=== PATIENT | male | born 1950 | race Caucasian/White ===

== ENCOUNTER → 2017-12-14 | Outpatient (CLI) | payer MEDICARE, OTHER ==
[~2017-12-14] MED LIST: ALENDRONATE SOD70 MG; ALLER-FEX180 MG; CALCIUM MAGNESIUM; COQ-10100 MG; DOXAZOSIN MESYLA8 MG; FIBER THERAPY500 MG; FLEXERIL; FLOMAX0.4 MG PO; LIPITOR10 MG; MELATONIN3 MG; NORCO 5-325 TA1 EACH PO; OMEPRAZOLE40 MG; OSTEO BI-FLEX1 EAC2; PROSTA-STRONG; TORADOL 10 MG T10 MG PO
== END ==
LOC: M.RAD 14:27
DX: M81.0 Age-related osteoporosis without current pathological fracture (principal); E78.5 Hyperlipidemia, unspecified; K21.9 Gastro-esophageal reflux disease without esophagitis

== ENCOUNTER → 2019-12-30 | Outpatient (CLI) | payer MEDICARE, OTHER ==
[2019-12-30 10:53] LABS: CREATININE 1.1 mg/dL (0.6-1.3)
== END ==
LOC: M.LAB 10:00 → M.CT 10:30
PROVIDERS: ATTEND Family Medicine
DX: K57.30 Diverticulosis of large intestine without perforation or abscess without bleeding (principal); N40.1 Benign prostatic hyperplasia with lower urinary tract symptoms; K42.9 Umbilical hernia without obstruction or gangrene; K44.9 Diaphragmatic hernia without obstruction or gangrene

== ENCOUNTER 2020-05-01 15:49 | Inpatient (IN) | payer MEDICARE, OTHER ==
[~2020-05-01] VITALS: Ht 162.6 cm; Wt 90.8 kg
[~2020-05-01 15:49] MED LIST changes: -DOXAZOSIN MESYLA8 MG; +DOXAZOSIN MESYLA8 MG PO; -MELATONIN3 MG; +MELATONIN3 MG PO
[2020-05-01 15:55] VITALS: BP 142/69
[2020-05-01] MEDS ORDERED: METOPROLOL TART25 MG PO (15:59)
[2020-05-01] MEDS ORDERED: DICLOFENAC SODI75 MG PO (16:00)
[2020-05-01] MEDS ORDERED: NAMENDA 5 MG TAB5 M1 PO (16:01)
[2020-05-01] MEDS ORDERED: PROSCAR 5MG TABL5 M1 PO (16:01)
[2020-05-01] MEDS ORDERED: TRAZODONE HCL100 MG PO (16:02)
[2020-05-01] MEDS ORDERED: SINGULAIR 10 MG10 MG PO (16:02)
[2020-05-01 16:22] LABS: ABSOLUTE EOSINOPHILS 0.1 thou/uL (0.0-0.7); ABSOLUTE LYMPHOCYTES 1.2 thou/uL (0.8-5.3); ABSOLUTE MONOCYTES 0.7 thou/uL (0.0-1.2); ABSOLUTE NEUTROPHILS 6.3 thou/uL (1.6-8.1); BASOPHILS 0.5 %; EOSINOPHILS 0.9 %; HEMATOCRIT 41.9 % (42.0-52.0); HEMOGLOBIN 13.9 gm/dL (14.0-18.0); LYMPHOCYTES 14.1 %; MCH 28.2 pg (26.0-34.0); MCHC 33.1 g/dL (28.0-37.0); MCV 85.2 fL (80.0-100.0); MPV 6.8 fl. (7.2-11.1); NUCLEATED RBCS 0 /100WBC; PLATELET COUNT* 263 thou/uL (150-400); POLYS 76.5 %; RBC 4.92 mil/uL (4.50-6.00); WBC 8.2 thou/uL (4.0-11.0)
[2020-05-01 16:26] LABS: CALCIUM 8.8 mg/dL (8.5-10.1); CREATININE 0.9 mg/dL (0.6-1.3); POTASSIUM 3.9 mmol/L (3.5-5.1)
[2020-05-01 16:41] LABS: ALBUMIN 3.6 g/dL (3.4-5.0); MAGNESIUM 1.8 mg/dL (1.8-2.4); TOTAL BILIRUBIN 0.2 mg/dL (<0.1-1.0); TOTAL PROTEIN 6.4 g/dL (6.4-8.2)
[2020-05-01 16:58] LABS: APTT 24.5 Seconds (25.0-31.3); PROTIME 10.5 Seconds (9.20-11.50)
[2020-05-01 17:25] LABS: CHOLESTEROL 169 mg/dL (<200); HDL CHOLESTEROL 30 mg/dL (>40); LDL CHOLESTEROL 91 mg/dL (<100); SERUM ASSESSMENT Clear; TC:HDL 5.6 Ratio (Not establshd); TRIGLYCERIDE 243 mg/dL (<150); VLDL 49 mg/dL (<40)
[2020-05-01 21:08] VITALS: BP 113/55
[2020-05-01 22:00] VITALS: BP 119/57
[2020-05-01 23:43] VITALS: BP 95/54
[2020-05-02] VITALS (24 sets, daily range): BP systolic 103–156; BP diastolic 30–66
[2020-05-02 06:26] LABS: ABSOLUTE EOSINOPHILS 0.1 thou/uL (0.0-0.7); ABSOLUTE LYMPHOCYTES 1.3 thou/uL (0.8-5.3); ABSOLUTE MONOCYTES 0.9 thou/uL (0.0-1.2); ABSOLUTE NEUTROPHILS 7.6 thou/uL (1.6-8.1); BASOPHILS 0.2 %; EOSINOPHILS 0.6 %; HEMATOCRIT 39.7 % (42.0-52.0); HEMOGLOBIN 13.3 gm/dL (14.0-18.0); LYMPHOCYTES 13.1 %; MCH 28.6 pg (26.0-34.0); MCHC 33.5 g/dL (28.0-37.0); MCV 85.5 fL (80.0-100.0); MONOCYTES 9.2 %; MPV 6.9 fl. (7.2-11.1); NUCLEATED RBCS 0 /100WBC; PLATELET COUNT* 246 thou/uL (150-400); POLYS 76.9 %; RBC 4.65 mil/uL (4.50-6.00); RDW-CV 13.9 % (10.5-14.5); WBC 9.9 thou/uL (4.0-11.0)
[2020-05-02 06:41] LABS: CALCIUM 8.7 mg/dL (8.5-10.1); CREATININE 0.9 mg/dL (0.6-1.3); POTASSIUM 3.8 mmol/L (3.5-5.1)
[2020-05-02 16:08] LABS: CALCIUM 8.6 mg/dL (8.5-10.1)
[2020-05-03 01:11] VITALS: BP 118/57
[2020-05-03 04:32] VITALS: BP 130/64
[2020-05-03 04:45] LABS: HEMATOCRIT 37.9 % (42.0-52.0); HEMOGLOBIN 12.8 gm/dL (14.0-18.0); MCH 28.5 pg (26.0-34.0); MCHC 33.7 g/dL (28.0-37.0); MCV 84.5 fL (80.0-100.0); RBC 4.48 mil/uL (4.50-6.00); RDW-CV 13.6 % (10.5-14.5); WBC 7.9 thou/uL (4.0-11.0)
[2020-05-03 05:03] LABS: APTT 26.8 Seconds (25.0-31.3); PROTIME 11.1 Seconds (9.20-11.50)
[2020-05-03 08:00] VITALS: BP 117/60
--- NOTE | 2020-05-03 10:40 | CARD ---
[address] [address] CARDIAC CATH REPORT Name: JAMMIESUKHWINDER DEGROOT Dennis Room: [address] IN [facility]#: [id number] Admission: 05/01/20 Attend Phys: Rikki Aragon MD Discharge: Date of : 46 Report #: [id number] THIS REPORT FOR: cc: Mitul Marcos John E. DO ~ Patrick Child MD APPROVED REPORT Study performed: 05/02/2020 11:28:07 Patient Details Patient Status: In-Patient Room #: 213 The patient is a 69 year-old male Event Personnel Patrick Child Sociology Teacher, Allison Lara Gravity Meter Operator, Desiree Jackson RN Monitor, Keiry Rothman RTR Scrub Procedures Performed Art Access - R femoral artery* Left Heart Cath w/or w/o Coronaries [facility] w/wo Plasty Single RCA Indication Non-STEMI , Dyspnea, Unstable angina , Chest pain Risk Factors Hypercholesterolemia, Hypertension Admission/Lab Medications/Medications given during procedure Thrombin Inhibitors, Platelet Aff. Inhib. Procedure Narrative The patient was brought urgently to the Cardiac Catheterization Laboratory and was prepped and draped in a sterile manner. The right femoral was infiltrated with 2% Lidocaine subcutaneous anesthesia. A [place] 6 FR sheath was inserted into the right femoral artery. Coronary angiography was performed using coronary diagnostic catheters. The right coronary system was accessed and visualized with a Diagnostic catheter. The left coronary system was accessed and visualized with a Diagnostic catheter. The left ventricle was accessed and visualized with a Diagnostic catheter. The patient tolerated the procedure well and there were no complications [place] [address] CARDIAC CATH REPORT Name: SUKHWINDER AGUDELO Room: [address]#: [id number] Admission: 05/01/20 Attend Phys: Rikki Aragon MD Discharge: Date of : 46 Report #: [id number] Intraoperative Conscious Sedation Sedation start time: 12:00 Case end Time: 12:52 Fentanyl 100.0 mcg Versed 2.0 mg Fluoro Time: 12.6 minutes Dose: DAP 321525 cGycm2 2029 mGy Contrast Type and Amount: Visipaque 200 ml Coronary Angiography The patient's coronary anatomy is right dominant. Diagnostic Cath Left Main The left main artery is a large-caliber vessel, patent with no flow-limiting lesions. LAD The LAD is a moderate-sized caliber vessel, traverses the anterior wall and wraps around the apex. There is a severe stenosis in the proximal segment, 70%. At the bifurcation of the first diagonal artery. Diagonal 1 There is a borderline occlusion at the ostium, 50 to 60%. Circumflex This is a moderate-sized caliber vessel with mild disease proximally. OM1 This is a moderate-sized caliber vessel with mild disease proximally, 30%. After the stenosis, this vessel traverses the lateral wall. Right Coronary The RCA is a dominant vessel with a total occlusion in the midsegment. Left Ventriculography The left ventricle is normal in size with Decreased contractility. The left ventricular ejection fraction is estimated to be 40-45%. There is hypokinesis of the mid to basal inferior wall. Hemodynamics The aortic pressure is 117/53 mmHg with a mean of 77 mmHg. The left ventricular pressure is 118/13 mmHg with a mean of mmHg. The left ventricular end diastolic pressure is 25 mmHg. PCI Technique Lesion Anticoagulation was achieved with Angiomax. Patient was preloaded with Brillinta. Percutaneous coronary intervention was performed on the mid right coronary artery. The lesion stenosis prior to intervention was 100% with KEITH 2 flow. A 6F JR 4.0 [place] [address] CARDIAC CATH REPORT Name: SUKHWINDER AGUDELO Room: [address]#: [id number] Admission: 05/01/20 Attend Phys: Rikki Aragon MD Discharge: Date of : 48 Report #: [id number] was used to engage the right coronary ostium. A IG: Luge Wire 180 Interventional Guidewire was used to cross the lesion. BALLOON DILATION A Balloon catheter Euphora SC 2.0x12mm was inserted and inflated up to 8.00atm for 11seconds. Additional Inflation: 8.00atm for 5seconds. Additional Inflation: 8.00atm for 9seconds. STENT DEPLOYMENT A drug-eluting stent Cary RX Stent 2.79R18bo was inserted and inflated up to 14.00atm for 27seconds. Additional Inflation: 18.00atm for 16seconds. Additional Inflation: 18.00atm for 21seconds. POST STENT DEPLOYMENT BALLOON DILATION A Balloon catheter NC Trek RX 2.75 X 12 was inserted and inflated up to 14.00atm for 10seconds. Additional Inflation: 18.00atm for 14seconds. Additional Inflation: 18.00atm for 10seconds. Final angiography reveals 5 % stenosis with KEITH 3 flow. Conclusion 1. Successful insertion of a drug-eluting stent into the into the total occlusion in the mid RCA, with yarsanism of KEITH-3 blood flow. 2. There is severe occlusion of the proximal LAD, recommend staged PCI. 3. Mild disease in a moderate-sized OM1 vessel. 4. Mild to moderate segmental LV dysfunction. 5. Recommend dual antiplatelet therapy and aggressive risk factor management. <ELECTRONICALLY SIGNED> By: Patrick Child MD 05/03/20 1040 1040Patrick Child MD /INF
[2020-05-03 13:08] VITALS: BP 138/75
[2020-05-03 16:18] VITALS: BP 123/54
[2020-05-03 20:00] VITALS: BP 131/65
[2020-05-04] VITALS (21 sets, daily range): BP systolic 120–145; BP diastolic 62–75
[2020-05-04 05:19] LABS: ABSOLUTE EOSINOPHILS 0.2 thou/uL (0.0-0.7); ABSOLUTE LYMPHOCYTES 1.5 thou/uL (0.8-5.3); ABSOLUTE MONOCYTES 0.8 thou/uL (0.0-1.2); ABSOLUTE NEUTROPHILS 5.8 thou/uL (1.6-8.1); BASOPHILS 0.5 %; CALCIUM 8.5 mg/dL (8.5-10.1); EOSINOPHILS 1.8 %; HEMATOCRIT 38.2 % (42.0-52.0); HEMOGLOBIN 12.8 gm/dL (14.0-18.0); LYMPHOCYTES 18.4 %; MCH 28.5 pg (26.0-34.0); MCHC 33.6 g/dL (28.0-37.0); MCV 84.7 fL (80.0-100.0); MONOCYTES 9.9 %; MPV 7.5 fl. (7.2-11.1); NUCLEATED RBCS 0 /100WBC; PLATELET COUNT* 243 thou/uL (150-400); POLYS 69.4 %; POTASSIUM 3.8 mmol/L (3.5-5.1); RBC 4.51 mil/uL (4.50-6.00); WBC 8.4 thou/uL (4.0-11.0)
--- NOTE | 2020-05-04 10:31 | EKG ---
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: TB : 1950 Requested By: Carlos Mack Order Number: [id number] MD: Quinton Gould Measurements Intervals Boling Rate: 67 P: -14 NM: 162 QRS: 11 QRSD: 108 T: -42 QT: 393 QTc: 415 Interpretive Statements Sinus rhythm Probable inferior infarct, age indeterminate Compared to ECG 12/08/2014 19:38:57 no change Electronically Signed On 05-04-2020 10:31:16 DIRECTOR PRISON by Quinton Gould [email or web address] <ELECTRONICALLY SIGNED> By: Quinton Gould MD, FAC 05/04/20 1031 1556 1556 Quinton Gould MD, [facility] /EPI
--- NOTE | 2020-05-04 13:23 | EKG ---
[place] [address] ELECTROCARDIOGRAM REPORT Name: SUKHWINDER AGUDELO Room: [address] ADM IN M.R.#: [id number] Admission: 05/01/20 Attend Phys: Rikki Aragon, Discharge: Date of : 46 Date of Service: 05/04/20 1048 Report #: [id number] THIS REPORT FOR: //name// [facility] Test Date: 2020-05-04 Test Time: 10:48:02 Pat Name: SUKHWINDER AGUDELO Department: Room: [address] Gender: M Taker Off Drying Kiln: LESLI : 1950 Requested By: Quinton Gould Order Number: [id number] Alvino MD: Quinton Gould Measurements Intervals Angelica Rate: 65 P: 38 AK: 167 QRS: -16 QRSD: 112 T: -57 QT: 442 QTc: 460 Interpretive Statements Sinus rhythm Inferior infarct, age indeterminate Compared to ECG 05/01/2020 15:56:21 No significant changes Electronically Signed On 05-04-2020 13:23:33 REINFORCED STEEL PLACING SUPERVISOR by Quinton Gould [email or web address] <ELECTRONICALLY SIGNED> By: Quinton Gould MD, [facility] 05/04/20 1323 1048 1048 Quinton Gould MD, [facility] /EPI
--- NOTE | 2020-05-04 13:43 | CARD ---
[address] [address] CARDIAC CATH REPORT Name: SUKHWINDER AGUDELO Dennis Room: [address] IN [facility]#: [id number] Admission: 05/01/20 Attend Phys: Rikki Aragon MD Discharge: Date of : 46 Report #: [id number] THIS REPORT FOR: cc: Mitul Marcos John E. DO ~ Quinton Gould MD [facility] APPROVED REPORT Study performed: 05/04/2020 08:52:17 Patient Details Patient Status: In-Patient Room #: The patient is a 69 year-old male Event Personnel Quinton Gould Immigration Judge, Virginia Ames RN RN, Baudilio Loja ENDOSCOPY TECHNICIAN Scrub, Aleksander Gilman ENDOSCOPY TECHNICIAN Monitor, Quinton Gould Rock Cutter Procedures Performed cath pci Indication Arrhythmia, Chest pain Risk Factors Hypercholesterolemia, Coronary Artery Disease Previous Procedures/Diagnoses Previous PCI, Previous [place] Admission/Lab Medications/Medications given during procedure Platelet Aff. Inhib., Heparin Unfract. Procedure Narrative The patient was brought electively to the Cardiac Catheterization Laboratory and was prepped and draped in a sterile manner. The left femoral was infiltrated with 1% Lidocaine subcutaneous anesthesia. A [place] 6 FR sheath was inserted into the left femoral artery. Coronary angiography was performed using coronary diagnostic catheters. The right coronary system was accessed and visualized with a Diagnostic - JR4 catheter. The left coronary system was accessed and visualized with a 6F XB LAD 3.5 catheter. The left ventricle was accessed and visualized with a Pressures [place] [address] CARDIAC CATH REPORT Name: SUKHWINDER AGUDELO Room: [address]#: [id number] Admission: 05/01/20 Attend Phys: Rikki Aragon MD Discharge: Date of : 48 Report #: [id number] ventricular/Aortic Valve gradient assessed via catheter pullback. Pre-demployment femoral angiogram was performed LFA. Closure device was deployed with a 6 Fr Angioseal STS 6Fr. The patient tolerated the procedure well and there were no complications associated with the procedure. There was no hematoma. Intraoperative Conscious Sedation Sedation start time: 917 Case end Time: 955 Fentanyl 50 mcg Versed 4 mg Fluoro Time: 5.5 minutes Dose: DAP 84131 cGycm2 1697 mGy Contrast Type and Amount: Omnipaque 150 ml Coronary Angiography The patient's coronary anatomy is right dominant. Diagnostic Cath Left Main 0% stenosis LAD 80% stenosis noted after the first diagonal branch Circumflex 40% mid stenosis Right Coronary 30% proximal stenosis. Stent in the mid RCA had 0% stenosis Left Ventriculography Left Ventriculography was not performed. Hemodynamics The aortic pressure is 136/64 mmHg with a mean of 97 mmHg. The left ventricular pressure is 142/10 mmHg with a mean of mmHg. The left ventricular end diastolic pressure is 16 mmHg. There was no gradient across the aortic valve upon pullback. Pullback from the left ventricle to the aorta revealed no gradient across the aortic valve. PCI Technique Lesion Anticoagulation was achieved with Heparin. Patient was preloaded with Brillinta. Percutaneous coronary intervention was performed on the mid left anterior descending artery segment. The lesion stenosis prior to intervention was 80% with KEITH 3 flow. A 6F XB LAD 3.5 Guide Catheter was used to engage the Left ostium. A IG: BMW 190cm Interventional Guidewire was used [place] [address] CARDIAC CATH REPORT Name: JAMMIESUKHWINDER Room: [address]#: [id number] Admission: 05/01/20 Attend Phys: Rikki Aragon MD Discharge: Date of : 46 Report #: [id number] BALLOON DILATION A Balloon catheter Trek RX 2.5 X 15 was inserted and inflated up to 18.00atm for 15seconds. Repeat angiography revealed the following post-dilatation results: 30% stenosis. STENT DEPLOYMENT A drug-eluting stent [place] RX Stent 3.5X26mm was inserted and inflated up to 9.00atm for 11seconds. Repeat angiography revealed the following post-stent deployment results: 0% stenosis. Additional Inflation: 11.00atm for 12seconds. Additional Inflation: 14.00atm for 17seconds. Final angiography reveals 0 % stenosis with KEITH 3 flow. Conclusion 1. 80% mid stenosis of the LAD 2. no restenosis noted of a stent in the mid RCA 3. successful placement of a drug eluting stent in the mid LAD Recommendations Cardiac Rehabilitation Referral Aggressive Medical Therapy Medications Administered Ticagrelor <ELECTRONICALLY SIGNED> By: Quinton Gould MD, [facility] 05/04/20 1343 1343 [id number] Gould MD, [facility] /INF
[2020-05-05] VITALS (7 sets, daily range): BP systolic 100–144; BP diastolic 60–72
[2020-05-05 05:04] LABS: HEMATOCRIT 35.9 % (42.0-52.0); HEMOGLOBIN 12.2 gm/dL (14.0-18.0); MCH 28.9 pg (26.0-34.0); MCHC 34.1 g/dL (28.0-37.0); MCV 84.9 fL (80.0-100.0); MPV 7.3 fl. (7.2-11.1); RBC 4.23 mil/uL (4.50-6.00); RDW-CV 14.1 % (10.5-14.5); WBC 7.3 thou/uL (4.0-11.0)
[2020-05-05 05:15] LABS: CALCIUM 8.3 mg/dL (8.5-10.1); CREATININE 0.8 mg/dL (0.6-1.3); POTASSIUM 3.5 mmol/L (3.5-5.1)
[2020-05-05] MEDS ORDERED: LIPITOR 40 MG T40 M1 PO (09:53)
[2020-05-05] MEDS ORDERED: ASPIR 8181 MG PO (09:53)
[2020-05-05] MEDS ORDERED: BRILINTA90 MG PO (09:53)
--- NOTE | 2020-05-05 12:40 | EKG ---
[place] [address] ELECTROCARDIOGRAM REPORT Name: SUKHWINDER AGUDELO Room: [address] ADM IN M.R.#: [id number] Admission: 05/01/20 Attend Phys: Rikki Aragon, Discharge: Date of : 46 Date of Service: 05/05/20 0832 Report #: [id number] THIS REPORT FOR: //name// [facility] Test Date: 2020-05-05 Test Time: 08:32:14 Pat Name: SUKHWINDER AGUDELO Department: Room: [address] Gender: M Tax Compliance Officer: LESLI : 1950 Requested By: Quinton Gould Order Number: [id number] Reading MD: Quinton Gould Measurements Intervals Dante Rate: 66 P: 30 MO: 174 QRS: -11 QRSD: 109 T: -54 QT: 429 QTc: 450 Interpretive Statements Sinus rhythm Inferior infarct, age indeterminate Compared to ECG 05/04/2020 10:48:02 No significant changes Electronically Signed On 05-05-2020 12:39:54 BEAD FORMING MACHINE OPERATOR by Quinton Gould [email or web address] <ELECTRONICALLY SIGNED> By: Quinton Gould MD, [facility] 05/05/20 1239 0832 0832 Quinton Gould MD, [facility] /EPI
== END 2020-05-05 12:44 | disposition home or self-care (01) | DRG 246 ==
LOC: M.ERS 15:49 → M.2W 16:50 → M.TBA-ER 16:50 → M.2W 21:22
PROVIDERS: Emergency Medicine Emergency Medical Services; Internal Medicine Cardiovascular Disease; Registered Nurse; ADMIT Internal Medicine; ATTEND Internal Medicine
DX: I21.4 Non-ST elevation (NSTEMI) myocardial infarction (principal); I50.43 Acute on chronic combined systolic (congestive) and diastolic (congestive) heart failure; I47.1 Supraventricular tachycardia; E66.9 Obesity, unspecified; N40.0 Benign prostatic hyperplasia without lower urinary tract symptoms; K21.9 Gastro-esophageal reflux disease without esophagitis; E78.5 Hyperlipidemia, unspecified; M19.90 Unspecified osteoarthritis, unspecified site; Z20.822 Contact with and (suspected) exposure to COVID-19; Z88.7 Allergy status to serum and vaccine; Z68.34 Body mass index [BMI] 34.0-34.9, adult; Z88.8 Allergy status to other drugs, medicaments and biological substances; Z79.899 Other long term (current) drug therapy; Z82.49 Family history of ischemic heart disease and other diseases of the circulatory system

== ENCOUNTER → 2021-02-02 | Outpatient (CLI) | payer MEDICARE, OTHER ==
[~2021-02-02] MED LIST changes: +ASPIR 8181 MG PO; +BRILINTA90 MG PO; +DICLOFENAC SODI75 MG PO; +LIPITOR 40 MG T40 M1 PO; +METOPROLOL TART25 MG PO; +NAMENDA 5 MG TAB5 M1 PO; +PROSCAR 5MG TABL5 M1 PO; +SINGULAIR 10 MG10 MG PO; +TRAZODONE HCL100 MG PO
--- NOTE | 2021-02-02 14:46 | 2DMMODE ---
[place] [address] 2 D/M-MODE ECHOCARDIOGRAM Name: JAMMIESUKHWINDER Dennis Room: [facility]#: [id number] Admission: 02/02/21 Attend Phys: Shyann Jimenez, Discharge: Date of : 46 Date of Service: 02/02/21 1445 Report #: [id number] THIS REPORT FOR: cc: Mitul Marcos John E. DO Liston, Michael J. MD [facility] ~ APPROVED REPORT Study performed: 02/02/2021 09:48:31 EXAM: Comprehensive 2D, Doppler, and color-flow Echocardiogram Patient Location: Out-Patient BSA: 1.96 HR: 60 bpm BP: 132/80 mmHg Other Information Study Quality: Good Indications CAD SVT 2D Dimensions IVSd: 11.42 (7-11mm) LVOT Diam: 20.66 (18-24mm) LVDd: 46.18 mm PWd: 11.42 (7-11mm) Ascending Ao: 29.70 (22-36mm) LVDs: 31.11 (25-40mm) Aortic Root: 29.20 mm Volumes Left Atrial Volume (Systole) LA ESV Index: 31.30 mL/m2 Aortic Valve AoV Peak Bernardino.: 1.14 m/s AO Peak Gr.: 5.22 mmHg LVOT Max P.70 mmHg AO Mean Gr.: 2.64 mmHg LVOT Mean P.13 mmHg LVOT Max V: 0.82 m/s AO V2 VTI: 22.78 cm LVOT Mean V: 0.47 m/s MIKE (VTI): 3.11 cm2 LVOT V1 VTI: 21.15 cm AI Sac: 1.72 m/s2 AI PHT: 559.82 [place] [address] 2 D/M-MODE ECHOCARDIOGRAM Name: SUKHWINDER AGUDELO Room: [facility]#: [id number] Admission: 02/02/21 Attend Phys: Shyann Jimenez, Discharge: Date of : 46 Date of Service: 02/02/21 1445 Report #: [id number] Mitral Valve E/A Ratio: 0.97 MV Decel. Time: 184.40 ms MV E Max Bernardino.: 0.54 m/s MV PHT: 53.48 ms MVA (PHT): 4.11 cm2 TDI E/Lateral E': 4.91 E/Medial E': 7.71 Medial E' Bernardino.: 0.07 m/s Lateral E' Bernardino.: 0.11 m/s Pulmonary Valve PV Peak Bernardino.: 1.07 m/s PV Peak Gr.: 4.57 mmHg Tricuspid Valve RAP Estimate: 5.00 mmHg TR Peak Gr.: 25.11 mmHg RVSP: 30.11 mmHg PA Pressure: 30.11 mmHg Left Ventricle The left ventricle is normal size. There is normal LV segmental wall motion. There is normal left ventricular wall thickness. Left ventricular systolic function is normal. LVEF is 55-60%. Grade I - abnormal relaxation pattern. Right Ventricle The right ventricle is normal size. The right ventricular systolic function is normal. Atria Left atrium is mildly dilated. Right atrium is at the upper limits of normal. Right atrium is small. Right atrium is not well visualized. Right atrium is dilated. Right atrium is borderline dilated. Right atrium is mildly dilated. Aortic Valve Aortic valve leaflets are mildly thickened. Mild aortic regurgitation. There is no aortic valvular stenosis. Mitral Valve The mitral valve is normal in structure. Mild mitral regurgitation. No evidence of mitral valve stenosis[place] [address] 2 D/M-MODE ECHOCARDIOGRAM Name: SUKHWINDER AGUDEOL Room: [facility]#: [id number] Admission: 02/02/21 Attend Phys: Shyann Jimenez, Discharge: Date of : 46 Date of Service: 02/02/21 1445 Report #: [id number] The tricuspid valve is normal in structure. Mild tricuspid regurgitation. Pulmonic Valve The pulmonary valve is normal in structure. Mild pulmonic regurgitation. Great Vessels The aortic root is normal in size. IVC is normal in size and collapses >50% with inspiration. Pericardium There is no pericardial effusion. <Conclusion> The left ventricle is normal size. There is normal left ventricular wall thickness. Left ventricular systolic function is normal. LVEF is 55-60%. Grade I - abnormal relaxation pattern. Left atrium is mildly dilated. Mild aortic regurgitation. Mild mitral regurgitation. Mild tricuspid regurgitation. Mild pulmonic regurgitation. IVC is normal in size and collapses >50% with inspiration. <ELECTRONICALLY SIGNED> By: Jones Mora MD, FACC 02/02/21 1445 1445 1445 Jones Mora MD, FACC /INF
== END ==
LOC: M.CRD 01-26 15:51
PROVIDERS: ATTEND Nurse Practitioner
DX: I08.8 Other rheumatic multiple valve diseases (principal); I47.1 Supraventricular tachycardia; E78.5 Hyperlipidemia, unspecified; I25.10 Atherosclerotic heart disease of native coronary artery without angina pectoris; I10 Essential (primary) hypertension; R06.83 Snoring; R40.0 Somnolence